=== PATIENT | male | born 1970 | race Caucasian/White ===

== ENCOUNTER 2020-08-13 09:50 | Day surgery (SDC) | payer MEDICAID ==
[~2020-08-13] VITALS: Ht 157.5 cm; Wt 56.8 kg
[2020-08-13] MEDS ORDERED: LIDOCAINE/PF 2% 5 ML VIAL IM ONE (09:51)
[2020-08-13] MEDS ORDERED: PROPOFOL 1% 20 ML VIAL IVP ONE (09:51)
[2020-08-13] MEDS ORDERED: SODIUM CHLORIDE 0.9% 1,000 ML IV ONE (10:00)
[2020-08-13] MEDS ORDERED: SODIUM CHLORIDE 0.9% 1,000 ML ONE (10:19)
[2020-08-13 11:18] LABS: COVID AG,FIA SOURCE NASOPHARYNGEAL
[2020-08-13 12:23] LABS: GLUCOMETER DEV NAME(LOC) SDS.; GLUCOSE,POINT OF CARE 182 MG/DL (70-110)
[2020-08-13] MEDS ORDERED: INSLAN SQ (12:28)
[2020-08-13] MEDS ORDERED: ATOR40TA71 PO (12:28)
[2020-08-13] MEDS ORDERED: TRAM50TA4 PO (12:28)
[2020-08-13] MEDS ORDERED: LISI-893 PO (12:28)
== END 2020-08-13 14:45 | disposition home or self-care (01) ==
LOC: SURGERY 09:50
PROVIDERS: ATTEND Internal Medicine Gastroenterology
DX: R19.7 Diarrhea, unspecified (principal); R63.4 Abnormal weight loss; E78.00 Pure hypercholesterolemia, unspecified; E78.5 Hyperlipidemia, unspecified; E11.9 Type 2 diabetes mellitus without complications; I10 Essential (primary) hypertension; Z87.891 Personal history of nicotine dependence; Z98.890 Other specified postprocedural states; Z72.89 Other problems related to lifestyle
CPT/HCPCS: 45380; 82962; 87426; 88305; C9803; J2704; J3490; J7030